=== PATIENT | female | born 2000 | race Caucasian/White ===

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

== ENCOUNTER 2019-04-24 21:19 | Emergency (ER) | payer BC ==
[2019-04-24 21:37] VITALS: BP 125/80
--- NOTE | 2019-04-24 22:15 | UC ---
Cardiac HPI - HPI Summary HPI Summary: PATIENT IS A [employer]UDENT. DOES A LOT OF COMPUTER WORK. ADMITS TO HISTORY OF ANXIETY. FOR THE PAST 3 WEEKS HAS HAD INTERMITTENT MIDSTERNAL SHARP CHEST PAIN AND TINGLING IN HER LEFT ARM/HAND. SYMPTOMS LAST UP TO A COUPLE OF HOURS AND THEN SPONTANEOUSLY RESOLVE. FELT WORSE TODAY THAN NORMAL SO DECIDED TO COME IN FOR EVALUATION. IS FEELING A LITTLE SHORT OF BREATH WHEN SYMPTOMATIC. HAS NO PERSONAL CARDIAC HISTORY BUT HER FATHER HAD A HEART ATTACK AT AGE 50. - History of Current Complaint Chief Complaint: UCChestPain Stated Complaint: CHEST PAIN Time Seen by Provider: 04/24/19 21:27 Hx Obtained From: Patient Hx Last Menstrual Period: 2.5 weeks ago Onset/Duration: Gradual Onset, Lasting Weeks Timing: Intermittent Episodes Lasting: Initial Severity: Moderate Current Severity: Moderate Pain Intensity: 6 Chest Pain Location: Mid Sternal Character: Sharp/Stabbing Aggravating Factor(s): Nothing Alleviating Factor(s): Spontaneous Resolution Associated Signs & Symptoms: Positive: Chest Pain, Anxiety, Tingling, SOB. Negative: Fever, Nausea/Vomiting - Allergy/Home Medications Allergies/Adverse Reactions: Allergies Allergy/AdvReac Type Severity Reaction Status Date / Time No Known Allergies Allergy Verified 04/24/19 21:32 Home Medications: Home Medications Ibuprofen TAB* [Advil TAB*] 400 mg PO Q6H PRN 04/24/19 [History Confirmed ] PMH/Surg Hx/FS Hx/Imm Hx Psychological History: Anxiety - Surgical History Surgical History: Yes Surgery Procedure, Year, and Place: tonsillectomy. rhinoplasty - Family History Known Family History: Positive: Cardiac Disease, Diabetes - Social History Alcohol Use: Occasionally Substance Use Type: None Smoking Status (MU): Never Smoked Tobacco Review of Systems All Other Systems Reviewed And Are Negative: Yes Constitutional: Positive: Negative Respiratory: Positive: Shortness Of Breath Cardiovascular: Positive: Chest Pain Gastrointestinal: Positive: Negative Physical Exam Triage Information Reviewed: Yes Appearance: Well-Appearing, No Pain Distress, Well-Nourished Vital Signs: Initial Vital Signs Temp 98.8 F 04/24/19 21:33 Pulse 79 04/24/19 21:33 Resp 18 04/24/19 21:33 BP 125/80 04/24/19 21:33 Pulse Ox 100 04/24/19 21:33 Vital Signs Reviewed: Yes Eyes: Positive: Conjunctiva Clear ENT: Positive: Hearing grossly normal, Pharynx normal, TMs normal Neck: Positive: Supple, Nontender, No Lymphadenopathy Respiratory Exam: Normal Cardiovascular Exam: Normal Abdomen Description: Positive: Soft Musculoskeletal: Positive: No Edema Neurological: Positive: Alert Psychological: Positive: Age Appropriate Behavior Skin: Negative: Rashes Diagnostics - EKG Cardiac Rate: NL - 76BPM Cardiac Rhythm: Sinus: Normal Ectopy: None ST Segment: Normal - Assessment/Plan Course Of Treatment: LOW SUSPICION FOR CARDIAC ETIOLOGY OF PATIENT'S SYMPTOMS. LIKELY CONTRIBUTED TO BY ANXIETY AND REFLUX. EKG UNREMARKABLE. ENCOURAGED HER TO FOLLOW-UP WITH CARDIOLOGY FOR AN OUTPATIENT WORKUP FOR REASSURANCE. TO THE ER WITHOUT FAIL IF SYMPTOMS WORSEN. CBC, CMP AND TSH DRAWN. PHYSICAL EXAM ALSO SUGGESTIVE OF CARPAL TUNNEL SYNDROME IN THE LEFT HAND. HAVE ADVISED COCKUP SPLINT TO HELP OFFLOAD PRESSURE FROM THE NERVE. - Clinical Impression Provider Diagnosis: Non-cardiac chest pain Discharge ED - Sign-Out/Discharge Documenting (check all that apply): Patient Departure All imaging exams completed and their final reports reviewed: No Studies - Discharge Plan Condition: Stable Disposition: HOME Patient Education Materials: Noncardiac Chest Pain (ED) Referrals: [facility] [Provider Group] - If Needed Vinay Celis MD [Medical Doctor] - If Needed Additional Instructions: LOW PROBABILITY OF CARDIAC ETIOLOGY OF YOUR SYMPTOMS TODAY HOWEVER GIVEN YOUR CONCERN WOULD RECOMMEND OUTPATIENT CARDIOLOGY EVALUATION FOR REASSURANCE. DO NOT HESITATE TO GO TO THE ER IF YOUR SYMPTOMS WORSEN OR CHANGE. CBC, CMP AND TSH DRAWN TO FURTHER EVALUATE. WE WILL CALL YOU WITH ANY ABNORMAL RESULTS. YOUR CHEST DISCOMFORT MAY BE MULTIFACTORIAL IN NATURE. CONSIDER ANXIETY AND REFLUX POSSIBLE CONTRIBUTING FACTORS. NUMBNESS/TINGLING IN YOUR HAND MAY BE MORE DUE TO CARPAL TUNNEL SYNDROME. PAY ATTENTION TO HOW YOU'RE SLEEPING AT NIGHT AND TRY NOT TO COMPRESS YOUR LEFT ARM. CARPAL TUNNEL SYNDROME: Your examination suggests carpal tunnel syndrome. This syndrome is due to pressure on a nerve in the wrist. The pressure may be due to an old injury, hard work using the wrist, or arthritis in the wrist. Typical symptoms are tingling, numbness, and pain in the palm, thumb, index and middle fingers, and one side of the ring finger. This problem often has to be repaired surgically. If the physician feels that your problem is of a more chronic nature, you will be referred to a specialist for further care. Sometimes a splint, ice packs, and antiinflammatory medication make the syndrome go away -- if symptoms have just started. You should call the doctor if pain increases, if you develop difficulty using the thumb or fingers, or if major swelling occurs. WEAR THE SPLINT AT NIGHT AND DURING THE DAY ABLE TO HELP REDUCE THE RISK OF FURTHER IRRITATION OF THE NERVE. - Billing Disposition and Condition Condition: STABLE Disposition: Home
[2019-04-25 11:22] LABS: ABS Eosinophils 0.1 10^3/ul (0-0.6); ABS Lymphocytes 2.3 10^3/ul (1.0-4.8); ABS Monocytes 0.5 10^3/ul (0-0.8); ABS Neutrophils 3.5 10^3/ul (1.5-7.7); Eosinophil % 0.9 %; Hematocrit 38 % (35-47); Hemoglobin 13.1 g/dL (12.0-16.0); Lymphocyte % 35.7 %; Mean Corpuscular HGB Conc 34 g/dL (31-36); Mean Corpuscular Hemoglobin 30 pg (27-31); Mean Corpuscular Volume 87 fL (80-97); Mean Platelet Volume 9.9 fL (7.4-10.4); Nucleated Red Blood Cells % 0.1; Platelet Count 182 10^3/uL (150-450); Red Blood Count 4.34 10^6 /uL (3.70-4.87); Red Cell Distribution Width 12 % (10-15); White Blood Count 6.3 10^3/uL (3.5-10.8)
[2019-04-25 11:46] LABS: TSH (Thyroid Stimulating Horm) 1.62 mcIU/mL (0.34-5.60)
[2019-04-25 12:35] LABS: Albumin 4.4 g/dL (3.2-5.2); Calcium 9.2 mg/dL (8.6-10.3); Potassium 3.8 mmol/L (3.5-5.0); Total Bilirubin 0.9 mg/dL (0.2-1.0)
[2019-04-25 12:41] LABS: Albumin/Globulin Ratio 2.3 (1-3); BUN/Creatinine Ratio 27.9 (8-20); EGFR African American 151.3 (>60); Globulin 1.9 g/dL (2-4); Total Protein 6.3 g/dL (6.4-8.9)
--- NOTE | 2019-04-25 16:03 | UC ---
- Progress Note Progress Note: CBC, CMP AND TSH ARE ALL GROSSLY UNREMARKABLE. NO CHANGE IN MANAGEMENT. FOLLOW -UP ADVISED. Course/Dx - Diagnoses Provider Diagnoses: Non-cardiac chest pain Discharge ED - Sign-Out/Discharge Documenting (check all that apply): Post-Discharge Follow Up All imaging exams completed and their final reports reviewed: No Studies - Discharge Plan Condition: Stable Disposition: HOME Patient Education Materials: Noncardiac Chest Pain (ED) Referrals: [facility] [Provider Group] - If Needed Vinay Celis MD [Medical Doctor] - If Needed Additional Instructions: LOW PROBABILITY OF CARDIAC ETIOLOGY OF YOUR SYMPTOMS TODAY HOWEVER GIVEN YOUR CONCERN WOULD RECOMMEND OUTPATIENT CARDIOLOGY EVALUATION FOR REASSURANCE. DO NOT HESITATE TO GO TO THE ER IF YOUR SYMPTOMS WORSEN OR CHANGE. CBC, CMP AND TSH DRAWN TO FURTHER EVALUATE. WE WILL CALL YOU WITH ANY ABNORMAL RESULTS. YOUR CHEST DISCOMFORT MAY BE MULTIFACTORIAL IN NATURE. CONSIDER ANXIETY AND REFLUX POSSIBLE CONTRIBUTING FACTORS. NUMBNESS/TINGLING IN YOUR HAND MAY BE MORE DUE TO CARPAL TUNNEL SYNDROME. PAY ATTENTION TO HOW YOU'RE SLEEPING AT NIGHT AND TRY NOT TO COMPRESS YOUR LEFT ARM. CARPAL TUNNEL SYNDROME: Your examination suggests carpal tunnel syndrome. This syndrome is due to pressure on a nerve in the wrist. The pressure may be due to an old injury, hard work using the wrist, or arthritis in the wrist. Typical symptoms are tingling, numbness, and pain in the palm, thumb, index and middle fingers, and one side of the ring finger. This problem often has to be repaired surgically. If the physician feels that your problem is of a more chronic nature, you will be referred to a specialist for further care. Sometimes a splint, ice packs, and antiinflammatory medication make the syndrome go away -- if symptoms have just started. You should call the doctor if pain increases, if you develop difficulty using the thumb or fingers, or if major swelling occurs. WEAR THE SPLINT AT NIGHT AND DURING THE DAY ABLE TO HELP REDUCE THE RISK OF FURTHER IRRITATION OF THE NERVE. - Billing Disposition and Condition Condition: STABLE Disposition: Home
== END 2019-04-24 22:19 | disposition home or self-care (01) ==
LOC: UCEAST 21:19
DX: R07.89 Other chest pain (principal); R20.2 Paresthesia of skin; R06.02 Shortness of breath; F32.9 Major depressive disorder, single episode, unspecified
CPT/HCPCS: 36415; 80053; 84443; 85025; 93005; 99212; G0463